=== PATIENT | female | born 1975 | race African-American/Black ===

== ENCOUNTER 2019-03-03 14:23 | Emergency (ER) | payer BC, OTHER ==
[~2019-03-03] VITALS: Ht 167.6 cm; Wt 74.8 kg
[~2019-03-03 14:23] MED LIST: ANTI-DIARRHEA2 MG PO; DOXYCYCLINE 10100 M1 PO; HUMALOG100 UNIT/1; KEFLEX500 MG PO; NORCO 5-325 TA1 EACH PO; PHENERGAN 25 MG25 M1 PO; PYRIDIUM200 MG PO; SYNTHROID; ULTRAM 50MG TAB50 MG PO; ZOFRAN ODT4 MG PO
[2019-03-03 15:07] LABS: ABSOLUTE NEUTROPHILS 8.9 thou/uL (1.4-8.2); BASOPHILS 0.3 % (0.0-2.0); EOSINOPHILS 1.1 % (0.0-3.0); HEMATOCRIT 41.5 % (37.0-47.0); HEMOGLOBIN 13.5 gm/dL (12.0-15.0); LYMPHOCYTES 4.3 % (24.0-44.0); MCH 30.1 pg (26.0-34.0); MCHC 32.6 g/dL (28.0-37.0); MCV 92.2 fL (80.0-100.0); MONOCYTES 3.6 % (1.0-8.0); PLATELET COUNT 185 thou/uL (150-400); POLYS 90.7 % (36.0-66.0); RDW 14.1 % (10.5-14.5); WBC 9.8 thou/uL (4.0-11.0)
[2019-03-03 15:08] LABS: URINE BILIRUBIN NEGATIVE (Negative); URINE BLOOD NEGATIVE (Negative); URINE CLARITY CLEAR; URINE COLOR YELLOW; URINE GLUCOSE-RANDOM* TRACE (Negative); URINE KETONES NEGATIVE (Negative); URINE LEUKOCYTES-REFLEX NEGATIVE (Negative); URINE NITRITE-REFLEX NEGATIVE (Negative); URINE PROTEIN (DIPSTICK) NEGATIVE (Negative); URINE SPECIFIC GRAVITY 1.025 (1.005-1.035); URINE UROBILINOGEN 0.2 E.U./dl (0.2-1.0)
[2019-03-03] MEDS ORDERED: LIPITOR10 MG PO (15:28)
[2019-03-03 15:38] LABS: CALCIUM 8.7 mg/dL (8.5-10.1); CREATININE 0.7 mg/dL (0.6-1.0); POTASSIUM 4.2 mmol/L (3.5-5.1)
[2019-03-03 15:46] LABS: ALBUMIN 3.6 g/dL (3.4-5.0); TOTAL PROTEIN 8.2 g/dL (6.4-8.2)
[2019-03-03] MEDS ORDERED: ZOFRAN ODT4 MG DISSOLVE (16:17)
[2019-03-03 16:23] VITALS: BP 114/68
== END 2019-03-03 16:50 | disposition home or self-care (01) ==
LOC: ER 14:23
PROVIDERS: Physician Assistant
DX: R11.2 Nausea with vomiting, unspecified (principal); E11.9 Type 2 diabetes mellitus without complications; E03.9 Hypothyroidism, unspecified; Z98.890 Other specified postprocedural states; Z88.0 Allergy status to penicillin; Z88.2 Allergy status to sulfonamides; Z88.8 Allergy status to other drugs, medicaments and biological substances